=== PATIENT | female | born 1990 | race Caucasian/White ===

== ENCOUNTER 2016-10-03 23:05 | Emergency (ER) | payer OTHER ==
[~2016-10-03] VITALS: Ht 175.3 cm; Wt 109.1 kg
[~2016-10-03 23:05] MED LIST: BENADRYL ALLERG25 MG PO; ENDOCET 5-3251 EACH PO; HYDROCODON-ACE1 EAC7 PO; IBUPROFEN800 MG PO; PREDNISONE20 MG PO; PRENATAL TABLE1 EAC3 PO; TUMS500 MG PO; VALACYCLOVIR1000 MG PO
[2016-10-04 01:52] LABS: ADD MIUA? NO; BILIRUBIN NEGATIVE; BLOOD NEGATIVE; COLOR YELLOW ((YELLOW)); GLUCOSE (STRIP) NEGATIVE; KETONES NEGATIVE; LEUKOCYTES NEGATIVE; NITRITE NEGATIVE; PROTEIN (STRIP) NEGATIVE; SPECIFIC GRAVITY 1.017 (1.000-1.030); UCUL ADDED? NO; UROBILINOGEN 0.2 MG/DL (0.2-1.0)
[2016-10-04 01:52] LABS: HEMATOCRIT 41.7 % (36.0-46.0); MCH 30.2 PG (29.0-34.0); MCV 86.3 FL (83-99); MEAN PLAT.VOLUME 10.7 uM^3 (9.5-12.4); PLATELET COUNT 269 K/uL (156-360); RBC DIS.WIDTH-CV 12.2 % (11.8-14.6); RBC DIS.WIDTH-SD 38.5 % (39-53); RED BLOOD COUNT 4.83 M/uL (3.80-5.20); WHITE BLOOD COUNT 12.1 K/uL (4.1-10.2)
[2016-10-04 02:06] LABS: CHLORIDE 107 mEq/L (99-109); POTASSIUM 3.9 mEq/L (3.7-5.4); SODIUM 139 mEq/L (136-147)
[2016-10-04 02:08] LABS: GLUCOSE 121 mg/dL (70-99)
[2016-10-04 02:10] LABS: ANION GAP 11 MEQ/L (2-14); TOTAL BILIRUBIN 0.4 mg/dL (0.0-1.0)
[2016-10-04 02:12] LABS: ALKALINE PHOSPHATASE 81 IU/L (3-129); GFR ESTIMATE (CALCULATED) > 59 mL/min/
[2016-10-04 02:13] LABS: UREA NITROGEN (BUN) 11 mg/dL (9-23)
[2016-10-04 02:52] LABS: LIPASE 9 U/L (1.0-51.0)
[2016-10-04 04:11] VITALS: BP 123/55
[2016-10-04 04:44] LABS: INTERNAL CONTROL VALID? YES
== END 2016-10-04 04:12 | disposition home or self-care (01) ==
LOC: EME 23:05
PROVIDERS: Emergency Medicine
DX: S29.011A Strain of muscle and tendon of front wall of thorax, initial encounter (principal); X58.XXXA Exposure to other specified factors, initial encounter; M25.511 Pain in right shoulder; D72.829 Elevated white blood cell count, unspecified
CPT/HCPCS: 71101; 76705; 80053; 81003; 83690; 84703; 85027; 99281; 99284; J1885

== ENCOUNTER 2016-11-04 11:27 | Inpatient (IN) | payer OTHER ==
[~2016-11-04] VITALS: Ht 175.3 cm; Wt 106.8 kg
[2016-11-04 12:25] LABS: BASOPHIL COUNT 0.1 K/uL (0-0.1); EOSINOPHIL (%) 7.8 % (0-5); EOSINOPHIL COUNT 0.7 K/uL (0-0.3); HEMATOCRIT 38.1 % (36.0-46.0); IMMATURE GRANULOCYTE (%) 0.7 % (0.0-0.7); IMMATURE GRANULOCYTE COUNT 0.1 K/uL; INSTRUMENT ABS NEUTROPHIL CT 5.4 K/uL; LYMPHOCYTE COUNT 2.1 K/uL (1.0-2.8); MCH 29.3 PG (29.0-34.0); MCHC 34.1 G/DL (30.0-36.0); MEAN PLAT.VOLUME 9.1 uM^3 (9.5-12.4); MONOCYTE (%) 6.5 % (3-12); MONOCYTE COUNT 0.6 K/uL (0-0.8); NEUTROPHIL (%) 60.7 % (45-76); NEUTROPHIL COUNT 5.4 K/uL (1.8-6.4); PLATELET COUNT 446 K/uL (156-360); RBC DIS.WIDTH-CV 11.9 % (11.8-14.6); RBC DIS.WIDTH-SD 37.2 % (39-53); RED BLOOD COUNT 4.43 M/uL (3.80-5.20); WHITE BLOOD COUNT 8.9 K/uL (4.1-10.2)
[2016-11-04 12:39] LABS: INTER. NORMALIZED RATIO 0.9; PROTHROMBIN TIME 9.5 (9.2-11.2); PTT 27.1 (25-32)
[2016-11-04 12:41] LABS: CHLORIDE 107 mEq/L (99-109); POTASSIUM 4.3 mEq/L (3.7-5.4); SODIUM 140 mEq/L (136-147)
[2016-11-04 12:43] LABS: GLUCOSE 96 mg/dL (70-99)
[2016-11-04 12:44] LABS: ANION GAP 8 MEQ/L (2-14)
[2016-11-04 12:47] LABS: GFR ESTIMATE (CALCULATED) > 59 mL/min/; UREA NITROGEN (BUN) 9 mg/dL (9-23)
[2016-11-04 12:55] LABS: QUANTITATIVE HCG < 4.0 MIU/ML
[2016-11-04] MEDS ORDERED: ENDOCET 5-3251 EACH PO (14:27)
[2016-11-04] MEDS ORDERED: CYCLOBENZAPRINE10 MG PO (14:27)
[2016-11-04] MEDS ORDERED: NUVARING VAGIN1 EACH VG (14:27)
[2016-11-04 14:50] LABS: TROP-I INTERPRETATION NEGATIVE; TROPONIN-I < 0.01 ng/mL (0.0-0.30)
[2016-11-04 15:52] VITALS: BP 143/72
[2016-11-04 20:01] VITALS: BP 135/62
[2016-11-04 20:34] LABS: INTER. NORMALIZED RATIO 0.9; PTT 28.7 (25-32)
[2016-11-04 20:38] LABS: TROP-I INTERPRETATION NEGATIVE; TROPONIN-I < 0.01 ng/mL (0.0-0.30)
[2016-11-04 21:21] LABS: PROTHROMBIN TIME 9.4 (9.2-11.2)
[2016-11-05] VITALS (7 sets, daily range): BP systolic 122–134; BP diastolic 59–82
[2016-11-05 03:39] LABS: HEMATOCRIT 39.3 % (36.0-46.0); MCHC 33.8 G/DL (30.0-36.0); MCV 85.6 FL (83-99); MEAN PLAT.VOLUME 10.2 uM^3 (9.5-12.4); PLATELET COUNT 375 K/uL (156-360); RBC DIS.WIDTH-CV 11.9 % (11.8-14.6); RBC DIS.WIDTH-SD 37.2 % (39-53); RED BLOOD COUNT 4.59 M/uL (3.80-5.20); WHITE BLOOD COUNT 11.1 K/uL (4.1-10.2)
[2016-11-05 03:47] LABS: CHLORIDE 105 mEq/L (99-109); POTASSIUM 4.6 mEq/L (3.7-5.4); SODIUM 138 mEq/L (136-147)
[2016-11-05 03:49] LABS: GLUCOSE 102 mg/dL (70-99)
[2016-11-05 03:50] LABS: ANION GAP 8 MEQ/L (2-14)
[2016-11-05 03:51] LABS: TOTAL BILIRUBIN 0.3 mg/dL (0.0-1.0)
[2016-11-05 03:53] LABS: ALKALINE PHOSPHATASE 97 IU/L (3-129); GFR ESTIMATE (CALCULATED) > 59 mL/min/
[2016-11-05 03:54] LABS: UREA NITROGEN (BUN) 10 mg/dL (9-23)
[2016-11-05 03:59] LABS: TROP-I INTERPRETATION NEGATIVE; TROPONIN-I < 0.01 ng/mL (0.0-0.30)
[2016-11-06 03:30] VITALS: BP 119/58
[2016-11-06 04:31] LABS: LUPA PHOSPHOLIPID NEUTRALIZ Negative (Negative)
[2016-11-06 06:57] LABS: HEMATOCRIT 40.1 % (36.0-46.0); MCH 29.1 PG (29.0-34.0); MCHC 33.9 G/DL (30.0-36.0); MCV 85.9 FL (83-99); MEAN PLAT.VOLUME 9.3 uM^3 (9.5-12.4); RBC DIS.WIDTH-CV 11.9 % (11.8-14.6); RBC DIS.WIDTH-SD 37.3 % (39-53); RED BLOOD COUNT 4.67 M/uL (3.80-5.20); WHITE BLOOD COUNT 12.7 K/uL (4.1-10.2)
[2016-11-06 07:07] LABS: PLATELET COUNT 492 K/uL (156-360)
[2016-11-06 08:05] VITALS: BP 117/64
[2016-11-06 11:26] VITALS: BP 124/78
[2016-11-06] MEDS ORDERED: ELIQUIS5 MG PO (12:35)
[2016-11-06 18:05] VITALS: BP 131/68
[2016-11-06 23:35] VITALS: BP 142/75
[2016-11-07 08:19] VITALS: BP 135/77
[2016-11-07 08:41] LABS: HEMATOCRIT 43.3 % (36.0-46.0); MCH 29.8 PG (29.0-34.0); MCHC 35.1 G/DL (30.0-36.0); MCV 84.9 FL (83-99); MEAN PLAT.VOLUME 9.3 uM^3 (9.5-12.4); PLATELET COUNT 540 K/uL (156-360); RBC DIS.WIDTH-CV 11.9 % (11.8-14.6); RBC DIS.WIDTH-SD 36.5 % (39-53); WHITE BLOOD COUNT 11.3 K/uL (4.1-10.2)
[2016-11-07 09:07] LABS: ANION GAP 9 MEQ/L (2-14); CHLORIDE 101 MEQ/L (99-109); GFR ESTIMATE (CALCULATED) > 59 mL/min/; GLUCOSE 99 mg/dL (70-99); POTASSIUM 4.8 MEQ/L (3.7-5.4); SAMPLE HEMOLYSIS CHECK 0; SAMPLE ICTERIC CHECK 0; SAMPLE LIPEMIA CHECK 0; SODIUM 137 MEQ/L (136-147); UREA NITROGEN (BUN) 11 mg/dL (9-23)
[2016-11-07] MEDS ORDERED: ENDOCET 5-3251 EACH PO (11:22)
[2016-11-07 19:04] LABS: DRVVT Mixing Study Interp Not Indicated (()); PROTEIN C FUNCTIONAL ACTIVITY+ 113 % (70-180); PTT-LA >200 sec (<=40); PTT-LA Reflex Has been added (()); Protein S, Free 82 % normal (50-147); Thrombosis Consult Level Limited (()); dRVVT Screen 46 sec (<=45)
[2016-11-07 22:23] LABS: ANTITHROMBIN III ACTIVITY+ 80 % activi (80-120)
[2016-11-07 22:24] LABS: THROMBIN TIME+ >100 (H) sec
== END 2016-11-07 12:05 | disposition home or self-care (01) | DRG 176 ==
LOC: EME 11:27 → EDOF 13:58 → 5SOUTH 13:58 → EDOF 14:43 → 5SOUTH 15:13
PROVIDERS: Internal Medicine; Nurse Practitioner Adult Health; Personal Emergency Response Attendant
DX: I26.99 Other pulmonary embolism without acute cor pulmonale (principal); R04.2 Hemoptysis; J90 Pleural effusion, not elsewhere classified; M54.9 Dorsalgia, unspecified
CPT/HCPCS: 71020; 80048; 80053; 81240 90; 83090 90; 83880; 84484; 84702; 85025; 85027; 85240 90; 85300 90; 85303 90; 85305 90; 85306 90; 85307 90; 85610; 85613 90; 85670 90; 85730; 85730 90; 86146 90; 86147 90; 93005; 93306; 93970; 94799; 99281; 99284

== ENCOUNTER 2017-10-10 03:52 | Inpatient (IN) | payer OTHER ==
[2017-10-10] VITALS (7 sets, daily range): BP systolic 114–129; BP diastolic 65–84
[~2017-10-10] VITALS: Ht 172.7 cm; Wt 106.0 kg
[~2017-10-10 03:52] MED LIST changes: +CYCLOBENZAPRINE10 MG PO; +ELIQUIS5 MG PO; +NUVARING VAGIN1 EACH VG
[2017-10-10] MEDS ORDERED: IBUPROFEN800 MG PO ×2 (05:24→05:42)
[2017-10-10 05:37] LABS: BASOPHIL (%) 0.5 % (0-1); BASOPHIL COUNT 0.1 K/uL (0-0.1); EOSINOPHIL (%) 0.5 % (0-5); EOSINOPHIL COUNT 0.1 K/uL (0-0.3); HEMATOCRIT 38.4 % (36.0-46.0); HEMOGLOBIN 13.4 G/DL (11.9-15.5); IMMATURE GRANULOCYTE (%) 1.4 % (0.0-0.7); LYMPHOCYTE (%) 17.3 % (15-42); LYMPHOCYTE COUNT 2.4 K/uL (1.0-2.8); MCH 29.8 PG (29.0-34.0); MCHC 34.9 G/DL (30.0-36.0); MCV 85.3 FL (83-99); MONOCYTE (%) 5.8 % (3-12); MONOCYTE COUNT 0.8 K/uL (0-0.8); NEUTROPHIL (%) 74.5 % (45-76); NEUTROPHIL COUNT 10.5 K/uL (1.8-6.4); PLATELET COUNT 211 K/uL (156-360); RBC DIS.WIDTH-CV 13.2 % (11.8-14.6); RBC DIS.WIDTH-SD 40.6 % (39-53); WHITE BLOOD COUNT 14.1 K/uL (4.1-10.2)
[2017-10-10] MEDS ORDERED: HEPARIN LO10 UNITS/M SQ (06:50)
[2017-10-10] MEDS ORDERED: TUMS500 MG PO (06:52)
[2017-10-11 06:28] LABS: BASOPHIL (%) 0.9 % (0-1); BASOPHIL COUNT 0.1 K/uL (0-0.1); EOSINOPHIL (%) 1.2 % (0-5); EOSINOPHIL COUNT 0.1 K/uL (0-0.3); HEMATOCRIT 37.1 % (36.0-46.0); HEMOGLOBIN 12.5 G/DL (11.9-15.5); IMMATURE GRANULOCYTE (%) 1.8 % (0.0-0.7); LYMPHOCYTE COUNT 3.1 K/uL (1.0-2.8); MCH 29.5 PG (29.0-34.0); MCHC 33.7 G/DL (30.0-36.0); MCV 87.5 FL (83-99); MONOCYTE (%) 6.5 % (3-12); MONOCYTE COUNT 0.7 K/uL (0-0.8); NEUTROPHIL (%) 62.6 % (45-76); NEUTROPHIL COUNT 7.2 K/uL (1.8-6.4); PLATELET COUNT 183 K/uL (156-360); RBC DIS.WIDTH-CV 13.8 % (11.8-14.6); RBC DIS.WIDTH-SD 43.4 % (39-53); RED BLOOD COUNT 4.24 M/uL (3.80-5.20); WHITE BLOOD COUNT 11.4 K/uL (4.1-10.2)
[2017-10-11 08:38] VITALS: BP 117/62
[2017-10-11] MEDS ORDERED: IBUPROFEN800 MG PO (09:23)
[2017-10-11] MEDS ORDERED: LOVENOX100 MG/1 M SC (09:23)
[2017-10-11 22:10] VITALS: BP 126/70
== END 2017-10-12 17:06 | disposition home or self-care (01) | DRG 775 ==
LOC: LDRP-OP 03:52 → 2WEST 03:53 → LDRP-OP 08:48 → 2WEST 10-12 17:06 → LDRP-OP 11-16 08:55
PROVIDERS: Nurse Practitioner
DX: O62.3 Precipitate labor (principal); O99.824 Streptococcus B carrier state complicating childbirth; O99.12 Other diseases of the blood and blood-forming organs and certain disorders involving the immune mechanism complicating childbirth; D68.52 Prothrombin gene mutation; O99.214 Obesity complicating childbirth; E66.9 Obesity, unspecified; Z68.35 Body mass index [BMI] 35.0-35.9, adult; Z86.711 Personal history of pulmonary embolism; Z79.01 Long term (current) use of anticoagulants; Z3A.39 39 weeks gestation of pregnancy; Z37.0 Single live birth
CPT/HCPCS: 36415; 85025; 85730; J1650